=== PATIENT | male | born 1990 | race Caucasian/White ===

== ENCOUNTER 2025-03-13 12:11 | Inpatient (IN) | payer MEDICAID, SELFPAY ==
--- NOTE | 2025-03-13 | ECG_ITS ---
Test Reason : baseline Blood Pressure : */* mmHG Vent. Rate : 80 BPM Atrial Rate : 80 BPM P-R Int : 148 ms QRS Dur : 82 ms QT Int : 396 ms P-R-T Axes : 32 23 27 degrees QTcB Int : 456 ms Normal sinus rhythm Normal ECG No previous ECGs available Referred By: Shyann Cooley Electronically Signed By: LATISHA HIGGINS
--- NOTE | ~2025-03-13 | US_ITS ---
EXAMINATION: US ABDOMEN LIMITED CLINICAL INFORMATION: Right upper quadrant abdominal pain.. COMPARISON: Correlated to CT abdomen and pelvis dated March 13, 2025 at 2:05 PM TECHNIQUE: Real-time ultrasound of the right upper quadrant abdomen, limited. FINDINGS: Gallbladder is fluid-filled without distention. No pericholecystic fluid collection or gallbladder wall thickening. Common bile duct measures 6 mm. Liver measures 18 cm with increased echotexture. Subtle nodular surface. No gross solid or cystic lesion. Probable 1.9 cm lymph node in the [place] hepatic region. Right kidney demonstrates no gross hydronephrosis. No ascites. US/US abdomen limited IMPRESSION: Hepatomegaly and steatosis. Hepatocellular disease cannot be excluded. No cholelithiasis. Common bile duct measures 6 mm without choledocholithiasis. No ascites. No gross hydronephrosis, right kidney. Electronically signed by: Papo Murillo MD 03/13/2025 03:58 PM [facility]
--- NOTE | ~2025-03-13 | XR_ITS ---
CLINICAL HISTORY: SEVERE RHABDOMYOLYSIS 1 view chest x-ray Comparison: None provided Findings: No consolidation, pleural effusion or pneumothorax. Normal size heart. No acute fracture. IMPRESSION: No acute cardiopulmonary process. This document has been electronically signed by: Ailin Honeycutt DO on 03/13/2025 18:01:41
--- NOTE | ~2025-03-13 | CT_ITS ---
EXAMINATION: CT ABDOMEN AND PELVIS WITH CONTRAST CLINICAL INFORMATION: RUQ, RLQ pain , elevated AST, ALT R/O appy/liver COMPARISON: None available. TECHNIQUE: Multidetector volumetric images were obtained from the superior aspect of the liver through the pubic symphysis following administration 85 mL of Omnipaque 350 intravenous contrast. Sagittal and coronal reformatted images were obtained on the technologist's workstation. Oral contrast: No This CT examination was performed using dose optimization techniques as appropriate, variously including the following: *Automated exposure control *Adjustment of mA and/or kV according to patient size (this includes techniques or standardized protocols for targeted exams where dose is matched to indication/reason for exam; i.e. extremities or head) *Use of iterative reconstruction technique FINDINGS: LUNG BASES: The visualized lung bases are unremarkable. LIVER, GALLBLADDER, AND BILIARY TREE: The liver is normal in size, shape, and attenuation. No focal hepatic lesion or biliary ductal dilatation is present. The gallbladder is unremarkable with no evidence of radiopaque gallstones, gallbladder wall thickening, or obvious pericholecystic inflammatory changes. PANCREAS: Unremarkable. SPLEEN: Unremarkable. ADRENAL GLANDS: Unremarkable. KIDNEYS AND URETERS: The kidneys are normal in size, shape, and attenuation. No hydronephrosis, hydroureter, or calculi seen. No perinephric stranding. BLADDER: Unremarkable. GASTROINTESTINAL TRACT: The small and large bowel are unremarkable. The appendix is unremarkable. ABDOMINAL WALL: No significant hernia is appreciated. LYMPH NODES: Normal. VASCULAR: Minimal atherosclerotic ossifications PELVIC VISCERA: Unremarkable. 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 CT/CT abdomen pelvis w IV con IMPRESSION: No acute abnormality. Specifically, unremarkable appearing appendix, liver, and gallbladder. Fleischner guidelines were followed. Electronically signed by: Alejandro Vang MD 03/13/2025 02:31 PM [facility]
[2025-03-13 12:22] VITALS: BP 181/10; PULSE 80; RESP 16; TEMP 37.1; O2SAT 99; BMI 40.3
--- NOTE | 2025-03-13 12:22 | ED.ABDPAIN ---
HPI - Abdominal Pain General Chief Complaint: Abdominal Pain Stated Complaint: Stomach Pain Time Seen by Provider: 03/13/25 13:13 Source: patient Mode of arrival: ambulatory Limitations: no limitations History of Present Illness ED Provider: Dr. Lyle Meléndez HPI narrative: 34-year-old male with no significant past medical history accept for opiate use disorder 10 years prior, on methadone for 10 years with no recent use, who presents to the emergency department for evaluation of right upper quadrant abdominal pain which began last night at around 21:00 hours. Patient states he went to urinate and developed right-sided abdominal pain and noted that his urine was very dark. He also noted urinary frequency and states that he is urinating every 30 minutes. The dark color of his urine has resolved but he is continuing to have right-sided abdominal pain. The patient went to an urgent care clinic and was referred to the emergency department for evaluation. At the time my evaluation, he is complaining of right upper quadrant pressure-like pain which is constant in his 09/02. This is 1st episode of this type of pain. 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 Patient has noted pain of his upper extremities and states that his arms do feel weaker than normal. Review of systems was negative for fever, chills, sore throat, cough, chest pain, shortness of breath, dyspnea on exertion, nausea, vomiting, diarrhea. Related Data Allergies Allergy/AdvReac Type Severity Reaction Status Date / Time Penicillins Allergy Hives Verified 03/13/25 12:23 Review of Systems Review of Systems Yes all other systems are reviewed and are negative [facility] Past Medical History [facility] Narrative: Social history: Patient denies tobacco use. The patient states he has been sober for 2.5 years. Prior to that he was drinking at least a pt of vodka daily for many years. He is not aware of any liver damage from his drinking. He denies drug use. Social History Social History Smoked in Last 30 Days: No Use of substances other than those prescribed or required for medical reasons: No Advance Directives: No Advance Directives Information Provided: No Physical Exam ED Vital Signs: Vital Signs - 24 hr 03/13/25 12:22 03/13/25 13:27 Temperature 98.7 F 98.3 F Pulse Rate 80 80 Respiratory Rate 16 20 Blood Pressure 181/10 H 157/100 H Pulse Oximetry 99 99 Oxygen Delivery Method Room Air Room Air BMI result Body Mass Index 40.3 Vital signs revealed an elevated blood pressure of 181/100 otherwise unremarkable Exam: General: Awake, alert in no distress Head: Normocephalic, atraumatic EENT: PERRL, sclera and conjunctiva are normal, mouth with no erythema or exudates Neck: Supple, no adenopathy Lung: breath sounds symmetric, no wheezing, no rales and no rhonchi Chest: symmetric movement, nontender Heart: regular rate and rhythm, normal S1, S2 no murmurs or rubs Abdomen: soft, Moderate right upper quadrant tenderness with a negative Chavarria sign, moderate right lower quadrant tenderness, no rebound, nondistended, normal bowel sounds Back: no vertebral tenderness, no CVAT Extremities: no deformities, moves all extremities symmetrically, no edema Neuro: Awake, alert, oriented, normal speech, cranial nerves 2-12 intact, moves all extremities symmetrically Psych: Pleasant, cooperative Course Course Course Narrative: This is an RME: Additional HPI, ROS, PE not included below will be deferred to primary provider. RME assessment and note performed by: Rebekah Mansfield PA-C This is a [id number]-male, with a hx of GERD, who presents to the ER with a complaint of abdominal pain, dark urine. No nausea, vomiting. Had strep 6 months ago - completed zpak in its entirety. reports that the urine looked to be [employer] colored and frothy. Patient has a photo on his phone. No drug use. Plan: Labs, UA Medical Decision Making Medical Decision Making MDM Narrative: 34-year-old male with no significant past medical history accept for opiate use disorder 10 years prior, on methadone for 10 years who presents emergency department for evaluation of right upper quadrant abdominal pain which began last night at around 21:00 hours. Patient states he went to urinate and developed right-sided abdominal pain and noted that his urine was very dark. He also noted urinary frequency and states that he is urinating every 30 minutes. The dark color of his urine has resolved but he is continuing to have right-sided abdominal pain. The patient went to an urgent care clinic and was referred to the emergency department for evaluation. At the time my evaluation, he is complaining of right upper quadrant pressure-like pain which is constant in his 5/10. This is 1st episode of this type of pain. 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 Patient has noted pain of his upper extremities and states that his arms do feel weaker than normal.Review of systems was negative for fever, chills, sore throat, cough, chest pain, shortness of breath, dyspnea on exertion, nausea, vomiting, diarrhea. exam did reveal an elevated blood pressure otherwise vital signs were normal. Patient does have moderate right upper quadrant and right lower quadrant tenderness otherwise exam is unremarkable. Differential diagnosis: Includes but is not limited to Viral hepatitis, autoimmune hepatitis, acute cholecystitis, gallstone pancreatitis, hemochromatosis, appendicitis, diverticulitis, rhabdomyolysis, myopathy, urinary tract infection, renal stone, anemia, electrolyte abnormalities Course: 14:06 my independent interpretation patient's laboratory evaluation is as follows: CBC was normal. BUN and creatinine were normal. Glucose was elevated 133. AST and ALT were elevated 620 and 221. total bilirubin and direct bilirubin were normal. Alkaline phosphatase was normal. LDH elevated 1261. Ferritin was normal - unlikely to be hemochromatosis as the cause of his elevated LFTs. CK was significantly elevated at greater than 42,670. Urinalysis revealed trace blood. Microscopic revealed 0-2 RBCs, 0-5 WBCs, 0-2 squamous cells, no bacteria. ESR was elevated 31. CRP was elevated 1.53. I ordered lactated Ringer's 3 L IV and Toradol 15 mg IV for his abdominal pain. 15:33 Patient's urine tox screen was positive for methadone. He initially did not tell me that he was on medication assisted therapy. He told me that he has been on methadone 130 mg daily for 10 years in his not used opiates since then. He states that he used to use heroin. According to Up-To-Date, methadone can cause rhabdomyolysis as a direct toxic effect on the muscle tissue even in patients that have not overdose with loss of consciousness / prolonged downtime. Patient got no relief of his abdominal pain with IV Toradol therefore he was given morphine [address] scan of the abdomen pelvis with IV contrast did not reveal any clear cause for the patient's rhabdomyolysis. Right upper quadrant ultrasound result is pending. I will discuss admission with the covering hospitalist. 16:13 ultrasound revealed hepatomegaly with steatosis but otherwise no other significant findings. I did discuss the patient with the covering hospitalist, nurse practitioner Shyann Cooley and she did come to the emergency department to evaluate the patient. Differential Diagnosis Differential Diagnoses: The differential diagnosis associated with the presentation includes (See above) Admission/Observation Consideration of admission/observation: Escalation of care including admission/observation considered ( yes) Lab Data MDM Lab Attestation statement: I reviewed the patient's lab results. 03/13/25 13:05 03/13/25 13:05 Labs: Lab Results 03/13/25 03/13/25 03/13/25 Range/Units 13:05 13:28 14:45 WBC 7.7 (4.8-10.8) X10*3/uL RBC 4.60 (4.60-5.80) X10*6/uL Hgb 12.7 L (14.0-18.0) g/dl Hct 38.8 L (42.0-52.0) % MCV 84.3 (80.0-98.0) fL MCH 27.6 (27.0-33.0) pg MCHC 32.7 (31.0-36.0) g/dl RDW 12.9 (11.0-16.0) % Plt Count 245 (160-400) X10*3/uL MPV 10.2 (9.4-12.4) fL Immature Gran % (Auto) 0.3 (0.0-0.4) % Neut % (Auto) 57.6 (45-73) % Lymph % (Auto) 33.5 (20-40) % [place] % (Auto) 5.7 (2-11) % Eos % (Auto) 2.3 (0-4) % Baso % (Auto) 0.6 (0-2) % Lymph # (Auto) 2.6 (1.2-4.9) X10*3/uL [place] # (Auto) 0.4 (0.1-1.2) X10*3/uL Eos # (Auto) 0.2 (0.0-0.4) X10*3/uL Baso # (Auto) 0.1 (0.0-0.2) X10*3/uL Abs Immat Gran (auto) 0.02 (0.00-0.03) X10*3/uL Absolute Neuts (auto) 4.4 (2.0-8.3) x10*3/uL Absolute Nucleated RBC 0.000 (0.0-0.012) X10*3/uL Nucleated RBC % (auto) 0.0 (0.0-0.2) /100WBC ESR 31 H (0-15) MM/HR Sodium 139 (135-145) mmol/L Potassium 3.6 (3.3-5.1) mmol/L Chloride 102 (96-108) mmol/L Carbon Dioxide 29 (22-29) mmol/L Anion Gap 12 (12-20) BUN 13 (9-16) mg/dL Creatinine 0.59 (0.5-1.4) mg/dL Estim Creat Clear Calc 212.6 Estimated GFR > 60 Random Glucose 133 H (60-115) mg/dL Calcium 9.1 (8.4-10.2) mg/dL Magnesium 1.8 (1.6-2.6) mg/dL Ferritin 79 (20-250) ng/mL Total Bilirubin 0.7 (0.0-1.0) mg/dL Direct Bilirubin 0.2 (0.0-0.5) mg/dL AST 620 H (5-37) U/L ALT 221 H (0-40) U/L Alkaline Phosphatase 73 (39-117) U/L Lactate Dehydrogenase 1261 H (118-273) U/L Total Creatine Kinase > 14325 H (38-174) U/L C-Reactive Protein 1.53 H (< or = 0.50) mg/dL Total Protein 7.2 (6.5-8.0) g/dL Albumin 4.2 (3.5-5.0) g/dL Urine Color Yellow Urine Appearance Clear Urine pH 6.0 (5.0-9.0) Ur Specific [place] 1.025 (1.005-1.025) Urine Protein Trace (Neg-Trace) mg/dL Urine Glucose (UA) Negative (Negative) mg/dL Urine Ketones Negative (Negative) mg/dL Urine Blood Trace H (Negative) Urine Nitrite Negative (Negative) Ur Leukocyte Esterase Negative (Negative) Urine RBC 0-2 (0-2) /HPF Urine WBC 0-5 (0-5) /HPF Ur Squamous Epith Cells 0-2 (0-2) /HPF Urine Bacteria None Seen (None Seen) Hyaline Casts 0-2 (0-2) /LPF Urine Opiates Screen Not Detected (Not Detect) Ur Buprenorphine Scrn Not Detected (Not Detect) ng/mL Ur Oxycodone Screen Not Detected (Not Detect) ng/mL Urine Methadone Screen Positive H (Not Detect) ng/mL Urine Fentanyl Screen Not Detected (Not Detect) Ur Barbiturates Screen Not Detected (Not Detect) Ur Phencyclidine Scrn Not Detected (Not Detect) Ur Amphetamines Screen Not Detected (Not Detect) U Benzodiazepines Scrn Not Detected (Not Detect) Urine Cocaine Screen Not Detected (Not Detect) U Marijuana (THC) Screen Not Detected (Not Detect) Radiology Impression Discussion of test interpretation with radiology: I have reviewed the radiologist's reading. Radiologist Impression: CT abdomen pelvis w IV con IMPRESSION: No acute abnormality. Specifically, unremarkable appearing appendix, liver, and gallbladder. Fleischner guidelines were followed. Electronically signed by: Alejandro Vang MD 03/13/2025 02:31 PM EST US abdomen limited IMPRESSION: Hepatomegaly and steatosis. Hepatocellular disease cannot be excluded. No cholelithiasis. Common bile duct measures 6 mm without choledocholithiasis. No ascites. No gross hydronephrosis, right kidney. Electronically signed by: Papo Murillo MD 03/13/2025 03:58 PM Medications Administered Discontinued Medications Generic Name Dose Route Start Last Admin Trade Name Freq PRN Reason Stop Dose Admin Lactated Ringer's 1,000 mls @ 999 mls/hr 03/13/25 14:09 03/13/25 14:16 Lr IV 03/13/25 15:09 999 mls/hr .Q1H1M STA Administration Lactated Ringer's 1,000 mls @ 999 mls/hr 03/13/25 14:11 03/13/25 14:16 Lr IV 03/13/25 15:11 999 mls/hr .Q1H1M STA Administration Ketorolac Tromethamine 15 mg 03/13/25 13:55 03/13/25 14:16 Ketorolac Tromethamine 15 Mg/Ml Vial IVPUSH 03/13/25 13:56 15 mg ONCE STA Administration Critical Care Time Critical Care Time Critical Care Time: Yes Total Critical Care Time: 35 Attestation: Critical Care: The patient was critically ill with a high probability of imminent or life threatening deterioration. I spent greater than 30 minutes of discontinuous time evaluating the patient,delivering critical care at the bedside, discussing and evaluating pertinent data with consultants. Critical care time does not include time spent performing separately billable procedures or teaching. Total time spent performing critical care was 35 minutes. Discharge Plan Discharge Clinical Impression: Rhabdomyolysis, Methadone dependence Patient Disposition: Admitted As Inpatient Print Language: [place]
[2025-03-13 13:09] LABS: MANUAL DIFF FLAG NO
[2025-03-13 13:12] LABS: Hematocrit 38.8 % (42.0-52.0); Hemoglobin 12.7 g/dl (14.0-18.0); Imm Gran Abs Auto 0.02 X10*3/uL (0.00-0.03); Imm Gran Pct Auto 0.3 % (0.0-0.4); Lymphocytes Absolute Auto 2.6 X10*3/uL (1.2-4.9); Mean Corpuscular HGB Conc 32.7 g/dl (31.0-36.0); Mean Corpuscular Hemoglobin 27.6 pg (27.0-33.0); Mean Corpuscular Volume 84.3 fL (80.0-98.0); NRBC Abs Auto 0.000 X10*3/uL (0.0-0.012); NRBC Pct Auto 0.0 /100WBC (0.0-0.2); Platelet Count 245 X10*3/uL (160-400); Red Blood Count 4.60 X10*6/uL (4.60-5.80); White Blood Count 7.7 X10*3/uL (4.8-10.8)
[2025-03-13 13:27] VITALS: BP 157/100; PULSE 80; RESP 20; TEMP 36.8; O2SAT 99
[2025-03-13 13:30] LABS: Alanine Aminotransferase 221 U/L (0-40); Albumin Level 4.2 g/dL (3.5-5.0); Alkaline Phosphatase 73 U/L (39-117); Anion Gap 12 (12-20); Aspartate Amino Transferase 620 U/L (5-37); Blood Urea Nitrogen 13 mg/dL (9-16); Calcium 9.1 mg/dL (8.4-10.2); Carbon Dioxide 29 mmol/L (22-29); Chloride 102 mmol/L (96-108); Creatinine Clr Calc Pharmacy 212.6; Estimated Glomerular Filt Rate > 60; Magnesium 1.8 mg/dL (1.6-2.6); Potassium 3.6 mmol/L (3.3-5.1); Sodium 139 mmol/L (135-145); Total Protein 7.2 g/dL (6.5-8.0)
--- NOTE | 2025-03-13 13:31 | PC.NURSE ---
a&ox4. vss and up to date aside from being slightly hypertensive. pt presents to the ED c/o RUQ pain radiating to lower abdomen w/ associated dark urine/urinary urgency x 2 days. pt otherwise denies any nausea/vomiting/diarrhea/fevers/chills. no previous abdominal surgeries. 20gIV placed in the right AC - labs obtained/sent to lab. bladder scan obtained displaying 108ml. pt able to urinate/provide specimen w/o difficulty. sent to lab. pt otherwise on RA w/o difficulty - no sob/wob noted. respirations even/unlabored. plan of care ongoing. call rosenberg placed within reach.
[2025-03-13 13:55] LABS: Appearance Urine Clear; Glucose Urine UA Negative (Negative); PH 6.0 (5.0-9.0); Specific Gravity - Urine 1.025 (1.005-1.025); UMIC TRIGGER UACC YES
[2025-03-13] MEDS: Lactated Ringers 1,000 ML 999 ML IV ×2 (14:16)
[2025-03-13 14:55] LABS: Ferritin 79 ng/mL (20-250)
[2025-03-13 15:07] LABS: Cannabinoid Screen Urine Not Detected (Not Detect)
[2025-03-13 16:34] VITALS: BP 163/85; PULSE 90; RESP 18; TEMP 36.2; O2SAT 99
--- NOTE | 2025-03-13 16:44 | P.HPHOSP_ITS ---
History of Present Illness Date of Service: 03/13/25 Chief Complaint: Abdominal pain 34-year-old man presented to ER with complaints of upper arm pain and right upper quadrant abdominal pain. He reported that this started suddenly yesterday. He denied any recent illness, steroid use, drug use, alcohol use, trauma, vigorous exercise. 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 He reports that he only takes methadone and has been on it for many years. He reported that he had a seizure when he was very young secondary to a concussion but has never been on any medications and has never had any other seizure activity. Patient reported that he vapes. Does not have any significant medical history and does not take any other medications other than the methadone and medication for acid reflux. He did report that he was treated for strep infection last month with antibiotics and steroids. In the ER, his CPK was noted to be elevated at 42,670, CRP 1.53, LDH 1261, AST 620, ALT 221. Abdominal ultrasound showed mild enlargement of the liver. Patient was started on IV fluids. He will be admitted for further management and treatment of severe rhabdomyolysis. Review of Systems 2 Review of Systems: Denies any recent fever chills or decrease in appetite respiratory denies any shortness of breath or cough cardiovascular denied chest pain gastrointestinal denies any dysphagia abdominal pain nausea vomiting or diarrhea genitourinary denies any dysuria frequency or hematuria musculoskeletal see HPI neuropsych denies any weakness or seizures all other systems reviewed are negative [facility] Medical History (Updated 03/13/25 @ 17:08 by Shyann Cooley NP) GERD (gastroesophageal reflux disease) Social History (Updated 03/13/25 @ 17:09 by Shyann Cooley NP) e-Cigarette/Vaping Use: Currently Using Meds Allergies Allergy/AdvReac Type Severity Reaction Status Date / Time Penicillins Allergy Hives Verified 03/13/25 12:23 Active Medications: Current Medications Acetaminophen (Acetaminophen 325 Mg Tablet) 650 mg PO Q6H PRN PRN Reason: Pain, Mild 1-3,fever,headache Calcium Carbonate (Calcium Carbonate 750 Mg Tab.Chew) 750 mg PO Q4H PRN PRN Reason: Heartburn Magnesium Hydroxide (Milk Of Magnesia 30 Ml Oral.Susp) 30 ml PO DAILY PRN PRN Reason: Constipation Melatonin (Melatonin 3 Mg Tablet) 6 mg PO BEDTIME PRN PRN Reason: Insomnia Sodium Chloride (0.9 % Sodium Chloride Flush 3 Ml Syringe) 3 ml IVFLUSH QSHIFT DREA Physical Exam 2 Vital Signs and Narrative: Vital Signs: Last Vital Signs Temp 97.2 F 03/13/25 16:34 Pulse 90 03/13/25 16:34 Resp 18 03/13/25 16:34 BP 163/85 H 03/13/25 16:34 Pulse Ox 99 03/13/25 16:34 O2 Del Method Room Air 03/13/25 16:34 BMI result Body Mass Index 40.3 Appearing in no acute distress head is normocephalic atraumatic eyes pupils are PERRLA sclera is anicteric mouth throat mucous membranes are intact and moist neck is supple no lymphadenopathy, no JVD noted lung sounds are clear to auscultation heart regular rate rhythm, clear S1, S2 positive bowel sounds, abdomen is soft, nontender neuro patient is alert x3, no focal deficits Results Labs 03/13/25 13:05 03/13/25 13:05 Labs: Laboratory Results - last 24 hr 03/13/25 03/13/25 03/13/25 13:05 13:28 14:45 MCV 84.3 MCH 27.6 MCHC 32.7 RDW 12.9 Plt Count 245 MPV 10.2 Immature Gran % (Auto) 0.3 Neut % (Auto) 57.6 Lymph % (Auto) 33.5 [place] % (Auto) 5.7 Eos % (Auto) 2.3 Baso % (Auto) 0.6 Lymph # (Auto) 2.6 [place] # (Auto) 0.4 Eos # (Auto) 0.2 Baso # (Auto) 0.1 Abs Immat Gran (auto) 0.02 Absolute Neuts (auto) 4.4 Absolute Nucleated RBC 0.000 Nucleated RBC % (auto) 0.0 ESR 31 H Anion Gap 12 Estim Creat Clear Calc 212.6 Estimated GFR > 60 Random Glucose 133 H Calcium 9.1 Magnesium 1.8 Ferritin 79 Total Bilirubin 0.7 Direct Bilirubin 0.2 AST 620 H ALT 221 H Alkaline Phosphatase 73 Lactate Dehydrogenase 1261 H Total Creatine Kinase > 30728 H C-Reactive Protein 1.53 H Total Protein 7.2 Albumin 4.2 Urine Color Yellow Urine Appearance Clear Urine pH 6.0 Ur Specific [place] 1.025 Urine Protein Trace Urine Glucose (UA) Negative Urine Ketones Negative Urine Blood Trace H Urine Nitrite Negative Ur Leukocyte Esterase Negative Urine RBC 0-2 Urine WBC 0-5 Ur Squamous Epith Cells 0-2 Urine Bacteria None Seen Hyaline Casts 0-2 Urine Opiates Screen Not Detected Ur Buprenorphine Scrn Not Detected Ur Oxycodone Screen Not Detected Urine Methadone Screen Positive H Urine Fentanyl Screen Not Detected Ur Barbiturates Screen Not Detected Ur Phencyclidine Scrn Not Detected Ur Amphetamines Screen Not Detected U Benzodiazepines Scrn Not Detected Urine Cocaine Screen Not Detected U Marijuana (THC) Screen Not Detected Imaging Radiologist's Impressions: Impressions Abdomen/Pelvis CT 03/13/25 14:02 IMPRESSION: No acute abnormality. Specifically, unremarkable appearing appendix, liver, and gallbladder. Fleischner guidelines were followed. Electronically signed by: Alejandro Vang MD 03/13/2025 02:31 PM EST RP Abdomen Ultrasound 03/13/25 15:03 IMPRESSION: Hepatomegaly and steatosis. Hepatocellular disease cannot be excluded. No cholelithiasis. Common bile duct measures 6 mm without choledocholithiasis. No ascites. No gross hydronephrosis, right kidney. Electronically signed by: Papo Murillo MD 03/13/2025 03:58 PM EST RP Assessment and Plan (1) Rhabdomyolysis: Status: Acute Plan 34 year old man admitted with severe rhabdomyolysis, transaminitis possibly secondary to postviral syndrome from strep throat. Patient was treated last month with antibiotics and steroids. Severe rhabdomyolysis Recently treated for viral infection Inflammatory markers elevated including LDH 1261, CRP 1.53, ESR 31, TSH pending Denied trauma, aggressive exercise, drugs, alcohol, did report viral strep last month CPK 42,670 Normal kidney function Aggressive IV fluid hydration Repeat CPK in the a.m. Transaminitis Likely secondary to acute rhabdomyolysis Mild enlargement of liver on abdominal ultrasound, discussed with Gastroenterology, no need for further assessment at this time Elevated blood pressure reading Patient denied any history of hypertension Follow up blood pressure for now Consider adding blood pressure medication if blood pressure continues to be elevated Morbid obesity. BMI 40.4 Discussed importance of weight management as this may be contributing to worsening of other comorbidities Normocytic anemia Stable H&H History of substance abuse On methadone for many years RN to verify History of vaping No nicotine replacement needed DVT prophylaxis with early ambulation Full code Quality Stroke Does the patient have a stroke diagnosis?: No VTE Prior VTE?: No VTE Risk Level:: Medical - moderate - high VTE Device Contraindication: Treatment Not Indicated VTE Drug Contraindication: Treatment Not Indicated
[2025-03-13 17:40] VITALS: BMI 40.3
[2025-03-13 17:46] VITALS: BP 148/83; PULSE 82; RESP 16; TEMP 36.6; O2SAT 98
[2025-03-13] MEDS: Lactated Ringers 1,000 ML 150 ML IVCONT (17:46)
--- NOTE | 2025-03-13 18:26 | PHA.MEDREC ---
Addendum entered by Carmine Mckenna bailee 03/13/25 18:54: med rec reviewed Original Note: Pharmacy Consult ? Medication Reconciliation Pharmacy has completed the medication reconciliation. Spoke with pt and he confirmed he is only taking OTC Omeprazole 20mg tabs once daily and nothing else at this time.
[2025-03-13 19:28] VITALS: BP 132/82; PULSE 84; RESP 18; TEMP 36.9; O2SAT 98
[2025-03-14] MEDS: Lactated Ringers 1,000 ML 150 ML IVCONT ×4 (00:37→21:20)
[2025-03-14 04:00] VITALS: BP 118/64; PULSE 78; RESP 18; TEMP 36.5; O2SAT 97
--- OUTSIDE RECORDS SUMMARY | 2025-03-14 05:49 | XMS_ITS | Clinical Summary ---
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 Name Role Phone Unavailable Primary Care Provider Unavailabl e Social History Tobacco Use Types Packs/Day Years Used Date Smoking Tobacco: Never Assessed Sex and Gender Information Value Date Recorded Sex Assigned at Not on file Legal Sex Male 9:18 PM EDT Gender Identity Not on file Sexual Orientation Not on file Plan of Treatment Health Maintenance Due Date Last Done Comments Depression Screening 1992 HIV Screening 1992 SDOH Screening 1992 Disability Screening 1992 Alcohol/Substance Use Screening 2004 Tobacco Screening 2004 Family Planning (PISQ) 09/16/2007 HPV Vaccines (1 - Male 3-dos e series) 09/16/2007 Hepatitis C Screening 2010 DTaP/Tdap/Td Vaccines (1 - Tdap) 09/16/2011 Hepatitis B Vaccines (1 of 3 - 19+ 3-dose series) 09/16/2011 COVID-19 Vaccine (1 - 2024-2 6 season) 2024 Influenza Vaccine (#1) 2024 Zoster Vaccines (1 of 2) 2042 RSV Patients and Pa tients Aged 60 years or older (1 - 1-dose 75+ series) 09/16/2067 HIB Vaccines Aged Out No longer eligi ble based on patient's age to complete this topic Hepatitis A Vaccines Aged Out No long er eligible based on patient's age to complete this topic IPV Vaccines Aged Out No longer eligi ble based on patient's age to complete this topic Meningococcal B Vaccine Aged Out No l onger eligible based on patient's age to complete this topic Meningococcal Vaccine Aged Out No charlie connie eligible based on patient's age to complete this topic Pneumococcal Vaccine: Pediat rics (0 to 5 Years) and At-Risk Patients (6 to 49) Years Aged Out No longer eligible b ased on patient's age to complete this topic RSV under 20 months Aged Out No longe r eligible based on patient's age to complete this topic Rotavirus Vaccines Aged Out No longer eligible based on patient's age to complete this topic
[2025-03-14 07:05] LABS: Alanine Aminotransferase 197 U/L (0-40); Albumin Level 4.0 g/dL (3.5-5.0); Alkaline Phosphatase 68 U/L (39-117); Anion Gap 11 (12-20); Aspartate Amino Transferase 444 U/L (5-37); Blood Urea Nitrogen 7 mg/dL (9-16); Calcium 9.1 mg/dL (8.4-10.2); Carbon Dioxide 26 mmol/L (22-29); Chloride 107 mmol/L (96-108); Creatinine Clr Calc Pharmacy 241.1; Estimated Glomerular Filt Rate > 60; Potassium 4.1 mmol/L (3.3-5.1); Sodium 140 mmol/L (135-145); Total Protein 7.1 g/dL (6.5-8.0)
[2025-03-14 07:06] LABS: HBS Num1 0.27 mIU/mL (0-7.99); HBc Num1 0.06 S/CO (0.00-0.79); HBsAGNum1 0.41 S/CO (0.00-0.99); Hepatitis A Antibody IgM 0.25 Index (0-0.79); Hepatitis B Surface Antigen Negative (Negative); ~HepC Num1 0.09 S/CO (0.00-0.79); ~Hepatitis A Antibody IgM Nonreactive (Nonreactive); ~Hepatitis B Surface Antibody NONREACTIVE (Nonreactive); ~Hepatitis C Antibody Nonreactive (Nonreactive)
[2025-03-14 07:32] LABS: Hematocrit 38.7 % (42.0-52.0); Hemoglobin 12.6 g/dl (14.0-18.0); Mean Corpuscular HGB Conc 32.6 g/dl (31.0-36.0); Mean Corpuscular Hemoglobin 28.1 pg (27.0-33.0); Mean Corpuscular Volume 86.2 fL (80.0-98.0); NRBC Abs Auto 0.000 X10*3/uL (0.0-0.012); NRBC Pct Auto 0.0 /100WBC (0.0-0.2); Platelet Count 210 X10*3/uL (160-400); Red Blood Count 4.49 X10*6/uL (4.60-5.80); White Blood Count 6.5 X10*3/uL (4.8-10.8)
[2025-03-14 07:38] VITALS: BP 153/69; PULSE 84; RESP 16; TEMP 36.4; O2SAT 98
[2025-03-14 07:43] LABS: EBV-NA IgG Index >600.00 U/mL; EBV-VCA IgG Ab 123.00 U/mL; EBV-VCA IgM Ab <36.00 U/mL
[2025-03-14] MEDS: 0.9 % Sodium Chloride Flush 3 ML SYRINGE IVFLUSH (08:13)
--- NOTE | 2025-03-14 08:36 | P.CNGI_ITS ---
History of Present Illness Data of Consult Service Date: 03/14/25 Primary Care Provider: [facility] HPI Reason for consult: enlarged liver , abdo pain 34-year-old man with hx of methadone dependence who I am seeing for elevated CPK and abdominal pain. He initially presented to ER with complaint of 1 d of bilateral upper arm cramps (liek he had been doing ehavy lifting) and right upper quadrant abdominal discomfort. before that he noted dark colored urine. He denied any recent illness or exposure to sick relatives/friends, steroid use, drug use, alcohol use, trauma, vigorous exercise or seizures. He was treated for strep infection last month with antibiotics and steroids. Labs revealed his CPK was noted to be elevated at 42,670, CRP 1.53, LDH 1261, AST 620, ALT 221 imaging with Us and CT A/P: hepatomegaly and steatosis, no gallstones were seen. Today: labs are improving and CK and LFT came down a lot Review of Systems 2 Review of Systems: Constitutional : No Weight loss, No Fever, No Chills ENT/Mouth : No sore throat, No Rhinorrhea Eyes: No Swelling, No Redness Cardiovascular : No Chest Pain, No SOB, No Edema Respiratory : No Cough, No Sputum, No Wheezing Gastrointestinal : see HPI Genitourinary : NO Dysuria, No Urinary Frequency, No Hematuria, No Urgency Musculoskeletal : no joint pain, + Myalgias, No Joint Swelling Skin : No Skin Lesions, No rash Neuro : No Weakness, No Numbness, No Dizziness, No Headache Psych : No Anxiety/Panic, No Depression Heme/Lymph: No Bruising, No Lymphadenopathy Endocrine : No Polyuria, No Polydipsia All other systems reviewed and are negative. [facility] Past Medical History Medical History (Updated 03/14/25 @ 13:47 by Tao Lala MD) GERD (gastroesophageal reflux disease) Family History Pertinent family history: no Fh of liver disease Social History Social History (Updated 03/13/25 @ 17:09 by Shyann Cooley NP) Household Members: Family Housing: House Do you presently have visiting nurse or other home services: No Patient Tobacco Use Status: Never used Tobacco Smoked in Last 30 Days: No e-Cigarette/Vaping Use: Currently Using Use of substances other than those prescribed or required for medical reasons: No Currently Displaying Signs/Symptoms of Drug Intoxication Withdrawal: No Have you been hit, kicked, punched, or otherwise hurt by someone within the past year? If so, by whom?: No Do you feel safe in your current relationship?: Yes Is there a partner from a previous relationship who is making you feel unsafe now?: No Are you made to feel afraid or neglected: No Advance Directives: No Advance Directives Information Provided: No Do you have a plan to hurt others: No Plan Recently lost weight without trying: No Eating poorly because of decreased appetite: No Nutrition Risks: No Nutritional Risk Poor oral hygiene: No Meds Allergies Allergy/AdvReac Type Severity Reaction Status Date / Time Penicillins Allergy Hives Verified 03/13/25 12:23 Active Medications: Current Medications Acetaminophen (Acetaminophen 325 Mg Tablet) 650 mg PO Q6H PRN PRN Reason: Pain, Mild 1-3,fever,headache Calcium Carbonate (Calcium Carbonate 750 Mg Tab.Chew) 750 mg PO Q4H PRN PRN Reason: Heartburn Lactated Ringer's (Lr) 1,000 mls @ 150 mls/hr IVCONT .Q6H40M [facility] Last Admin: 03/14/25 08:11 Dose: 150 mls/hr Magnesium Hydroxide (Milk Of Magnesia 30 Ml Oral.Susp) 30 ml PO DAILY PRN PRN Reason: Constipation Melatonin (Melatonin 3 Mg Tablet) 6 mg PO BEDTIME PRN PRN Reason: Insomnia Omeprazole (Omeprazole 20 Mg Capsule.Dr) 20 mg PO DAILY@0630 [facility] Sodium Chloride (0.9 % Sodium Chloride Flush 3 Ml Syringe) 3 ml IVFLUSH QSHIFT [facility] Last Admin: 03/14/25 08:13 Dose: 3 ml Home Medications ?Medication ?Instructions ?Recorded ?Confirmed ?Last Taken ?Type omeprazole 20 mg tablet,delayed 20 mg PO DAILY@0630 03/13/25 03/12/25 History release methadone 10 mg/mL oral 130 mg PO DAILY 03/14/2503/13/25 History concentrate (Methadone Intensol) Physical Exam 2 Exam: Exam: EXAM: GENERAL: The patient is well developed and nontoxic. overweight VITAL SIGNS:see workflow HEENT: Nonicteric sclerae, PERRLA, EOMI. Oropharynx clear. Moist mucous membranes. Conjunctivae appear well perfused. No thyroid mass. enlarged non infected tonsils CHEST: Chest wall is nontender. HEART: Regular rate and rhythm without murmurs. LUNGS: Clear to auscultation bilaterally. ABDOMEN: Soft, positive bowel sounds, nontender, no organomegaly.no flank tenderness SKIN: No rash, no excessive bruising, petechiae, or purpura. NEUROLOGIC: Cranial nerves II-XII intact without motor/sensory deficit. Psych: normal affect Vital Signs: Vital Signs: Last Vital Signs Temp 97.5 F 03/14/25 07:38 Pulse 84 03/14/25 07:38 Resp 16 03/14/25 07:38 BP 153/69 H 03/14/25 07:38 Pulse Ox 98 03/14/25 07:38 O2 Del Method Room Air 03/14/25 07:38 BMI result Body Mass Index 40.3 Results Labs 03/14/25 06:23 03/14/25 06:23 Labs: Short CBC 03/13/25 03/14/25 Range/Units 13:05 06:23 WBC 7.7 6.5 (4.8-10.8) X10*3/uL Hgb 12.7 L 12.6 L (14.0-18.0) g/dl Hct 38.8 L 38.7 L (42.0-52.0) % Plt Count 245 210 (160-400) X10*3/uL BMP 03/13/25 03/14/25 13:05 06:23 Sodium 139 140 Potassium 3.6 4.1 Chloride 102 107 Carbon Dioxide 29 26 BUN 13 7 L Creatinine 0.59 0.52 Calcium 9.1 9.1 Cardiac Enzymes 03/13/25 03/14/25 Range/Units 13:05 06:23 Total Creatine Kinase > 96663 H 09160 H (38-174) U/L Liver Function 03/13/25 03/14/25 Range/Units 13:05 06:23 Total Bilirubin 0.7 0.8 (0.0-1.0) mg/dL Direct Bilirubin 0.2 0.2 (0.0-0.5) mg/dL AST 620 H 444 H (5-37) U/L ALT 221 H 197 H (0-40) U/L Alkaline Phosphatase 73 68 (39-117) U/L Albumin 4.2 4.0 (3.5-5.0) g/dL Urine 03/13/25 Range/Units 13:28 Urine Color Yellow Urine Appearance Clear Urine pH 6.0 (5.0-9.0) Ur Specific [place] 1.025 (1.005-1.025) Urine Protein Trace (Neg-Trace) mg/dL Urine Glucose (UA) Negative (Negative) mg/dL Imaging CT scan - abdomen: Attestation: I personally reviewed and interpreted this imaging study as follows: (hepatomegaly, ) Assessment and Plan (1) Rhabdomyolysis: Qualifiers: Rhabdomyolysis type: non-traumatic Qualified Code(s): M62.82 - Rhabdomyolysis Status: Acute Plan 1/ Rhabdomyolysis with elevated LFT pattern consistent with myositis and not liver injury (AST > ALT) with downtrending numbers after hydration. Uncertain etiology, ?due to recent EBV, or antibiotics. He feels improved 2/ Hepatomegaly, presumed to be due to fatty liver PLAN: 1/ o/p follow up for fatty liver, can check Hep serologies 2/ Check TSH 3/ cont with fluids Procedures Date of Service Date of Service: 03/14/25
--- NOTE | 2025-03-14 09:59 | HO.PM.IMPN ---
Subjective Subjective Date of Service: 03/14/25 Interval History: Tested positive for Love bar virus LFTs and CPK trending known Pt reports feels better Still experiencing RUQ ?pressure? Review of Systems Review of Systems: Yes all other systems are reviewed and are negative Physical Exam Exam: Exam: General: AOx3, no acute distress Resp: CTA bilaterally CVS: S1, S2, RRR GI: +BS, NT, no distention Skin: Warm, dry Neuro: Cranial nerves II-XII grossly intact bilaterally. Motor grossly intact bilaterally Extremities: No edema Psych: Appropriate affect Vital Signs: Vital Signs: Last Vital Signs Temp 97.5 F 03/14/25 07:38 Pulse 84 03/14/25 07:38 Resp 16 03/14/25 07:38 BP 153/69 H 03/14/25 07:38 Pulse Ox 98 03/14/25 07:38 O2 Del Method Room Air 03/14/25 07:38 BMI result Body Mass Index 40.3 Objective Data Active Medications Acetaminophen (Acetaminophen 325 Mg Tablet) 650 mg PO Q6H PRN PRN Reason: Pain, Mild 1-3,fever,headache Calcium Carbonate (Calcium Carbonate 750 Mg Tab.Chew) 750 mg PO Q4H PRN PRN Reason: Heartburn Lactated Ringer's (Lr) 1,000 mls @ 150 mls/hr IVCONT .Q6H40M [facility] Last Admin: 03/14/25 08:11 Dose: 150 mls/hr Documented By: JAYME Magnesium Hydroxide (Milk Of Magnesia 30 Ml Oral.Susp) 30 ml PO DAILY PRN PRN Reason: Constipation Melatonin (Melatonin 3 Mg Tablet) 6 mg PO BEDTIME PRN PRN Reason: Insomnia Omeprazole (Omeprazole 20 Mg Capsule.Dr) 20 mg PO DAILY@0630 [facility] Sodium Chloride (0.9 % Sodium Chloride Flush 3 Ml Syringe) 3 ml IVFLUSH QSHIFT [facility] Last Admin: 03/14/25 08:13 Dose: 3 ml Documented By: JAYME Labs 03/14/25 06:23 03/14/25 06:23 Labs: Laboratory Results - last 24 hr 03/13/25 03/13/25 03/13/25 13:05 13:28 14:45 MCV 84.3 MCH 27.6 MCHC 32.7 RDW 12.9 Plt Count 245 MPV 10.2 Immature Gran % (Auto) 0.3 Neut % (Auto) 57.6 Lymph % (Auto) 33.5 [place] % (Auto) 5.7 Eos % (Auto) 2.3 Baso % (Auto) 0.6 Lymph # (Auto) 2.6 [place] # (Auto) 0.4 Eos # (Auto) 0.2 Baso # (Auto) 0.1 Abs Immat Gran (auto) 0.02 Absolute Neuts (auto) 4.4 Absolute Nucleated RBC 0.000 Nucleated RBC % (auto) 0.0 ESR 31 H Anion Gap 12 Estim Creat Clear Calc 212.6 Estimated GFR > 60 Random Glucose 133 H Estimat Average Glucose 114 Hemoglobin A1c % 5.6 Calcium 9.1 Magnesium 1.8 Ferritin 79 Total Bilirubin 0.7 Direct Bilirubin 0.2 AST 620 H ALT 221 H Alkaline Phosphatase 73 Lactate Dehydrogenase 1261 H Total Creatine Kinase > 97091 H C-Reactive Protein 1.53 H Total Protein 7.2 Albumin 4.2 TSH 0.51 Urine Color Yellow Urine Appearance Clear Urine pH 6.0 Ur Specific [place] 1.025 Urine Protein Trace Urine Glucose (UA) Negative Urine Ketones Negative Urine Blood Trace H Urine Nitrite Negative Ur Leukocyte Esterase Negative Urine RBC 0-2 Urine WBC 0-5 Ur Squamous Epith Cells 0-2 Urine Bacteria None Seen Hyaline Casts 0-2 Urine Opiates Screen Not Detected Ur Buprenorphine Scrn Not Detected Ur Oxycodone Screen Not Detected Urine Methadone Screen Positive H Urine Fentanyl Screen Not Detected Ur Barbiturates Screen Not Detected Ur Phencyclidine Scrn Not Detected Ur Amphetamines Screen Not Detected U Benzodiazepines Scrn Not Detected Urine Cocaine Screen Not Detected U Marijuana (THC) Screen Not Detected EBV Capsid Ag IgG Ab EBV Capsid Ag IgM Index EBV Nuclear Ag IgG Indx EBV Antibody Interp Hepatitis A IgM Ab Hep Bs Antigen Hep Bs Antibody Hep B Core Total Ab Hepatitis C Ab (EIA) 03/13/25 03/14/25 18:35 06:23 MCV 86.2 MCH 28.1 MCHC 32.6 RDW 12.8 Plt Count 210 MPV 10.4 Immature Gran % (Auto) Neut % (Auto) Lymph % (Auto) [place] % (Auto) Eos % (Auto) Baso % (Auto) Lymph # (Auto) [place] # (Auto) Eos # (Auto) Baso # (Auto) Abs Immat Gran (auto) Absolute Neuts (auto) Absolute Nucleated RBC 0.000 Nucleated RBC % (auto) 0.0 ESR Anion Gap 11 L Estim Creat Clear Calc 241.1 Estimated GFR > 60 Random Glucose 98 Estimat Average Glucose Hemoglobin A1c % Calcium 9.1 Magnesium Ferritin Total Bilirubin 0.8 Direct Bilirubin 0.2 AST 444 H ALT 197 H Alkaline Phosphatase 68 Lactate Dehydrogenase Total Creatine Kinase 98936 H C-Reactive Protein Total Protein 7.1 Albumin 4.0 TSH Urine Color Urine Appearance Urine pH Ur Specific [place] Urine Protein Urine Glucose (UA) Urine Ketones Urine Blood Urine Nitrite Ur Leukocyte Esterase Urine RBC Urine WBC Ur Squamous Epith Cells Urine Bacteria Hyaline Casts Urine Opiates Screen Ur Buprenorphine Scrn Ur Oxycodone Screen Urine Methadone Screen Urine Fentanyl Screen Ur Barbiturates Screen Ur Phencyclidine Scrn Ur Amphetamines Screen U Benzodiazepines Scrn Urine Cocaine Screen U Marijuana (THC) Screen EBV Capsid Ag IgG Ab 123.00 H EBV Capsid Ag IgM Index <36.00 EBV Nuclear Ag IgG Indx >600.00 H EBV Antibody Interp SEE NOTE Hepatitis A IgM Ab Nonreactive Hep Bs Antigen Negative Hep Bs Antibody NONREACTIVE Hep B Core Total Ab Nonreactive Hepatitis C Ab (EIA) Nonreactive Assessment and Plan (1) Rhabdomyolysis: Status: Acute (2) Love Espinoza infection: Status: Acute Plan 34 year old man admitted with severe rhabdomyolysis, transaminitis possibly secondary to postviral syndrome from strep throat. Patient was treated last month with antibiotics and steroids. Severe rhabdomyolysis Recently treated for strep throat with abx 4-6 weeks ago Tested positve for EBV Inflammatory markers elevated including LDH 1261, CRP 1.53, ESR 31 Denied trauma, aggressive exercise, drugs, alcohol, did report viral strep last month CPK initially >42,670, now 28,464 Normal kidney function Continue aggressive IV fluid hydration Trend CPK Infectious disease consulted Transaminitis Likely secondary to acute EBV Mild enlargement of liver on abdominal ultrasound, discussed with Gastroenterology, no need for further assessment at this time LFTS trending down Monitor Elevated blood pressure reading Patient denied any history of hypertension Follow up blood pressure for now Consider adding blood pressure medication if blood pressure continues to be elevated Normocytic anemia Stable H&H History of substance abuse On methadone for many years Continue methadone 130mg daily History of vaping No nicotine replacement needed Obesity class III BMI 40.4 Discussed importance of weight management as this may be contributing to worsening of other comorbidities DVT prophylaxis with early ambulation Full code Pt requires continued hospitalization for aggressive IV fluid resuscitation and close monitoring of kidney function, CPK, and LFTs. Quality Stroke Does the patient have a stroke diagnosis?: No VTE Prior VTE?: No VTE Risk Level:: Medical - moderate - high VTE Device Contraindication: Treatment Not Indicated VTE Drug Contraindication: Treatment Not Indicated
--- NOTE | 2025-03-14 10:13 | HE.PHANOTE ---
METHADONE Last received 130mg 03/08/25 from [facility], . Pt received 7 take home bottles, last consumed yesterday, 03/13.
[2025-03-14] MEDS: methADONE HCl 20 MG/2 ML ORAL.CONC 130 MG PO (10:29)
[2025-03-14 10:56] LABS: Chlamydia pneumoniae PCR Not Detected (Not Detect.); Coronavirus 229E PCR Not Detected (Not Detect.); Coronavirus HKU1 PCR Not Detected (Not Detect.); Coronavirus NL63 PCR Not Detected (Not Detect.); Coronavirus OC43 PCR Not Detected (Not Detect.); RSV PCR Not Detected (Not Detect.); Rhino/Enterovirus PCR Not Detected (Not Detect.)
[2025-03-14 11:34] LABS: Influenza A H1 PCR Not Detected (Not Detect.); Influenza A H1-2009 PCR Not Detected (Not Detect.); Influenza A H3 PCR Not Detected (Not Detect.); SARS-CoV-2 PCR Not Detected (Not Detect.)
--- NOTE | 2025-03-14 13:52 | MHC.CM.PN ---
pt lives with father is indepedent has own ride hme pt gets methadone from from [facility]
--- NOTE | 2025-03-14 15:12 | PC.NURSE ---
IV paused for patient to shower
[2025-03-14 15:37] VITALS: BP 171/91; PULSE 76; RESP 18; TEMP 36.3; O2SAT 98
--- NOTE | 2025-03-14 16:25 | W.PM.IDCN ---
History of Present Illness Data of Consult Service Date: 03/14/25 Requesting physician: Naty Rebolledo Primary Care Provider: [facility] Reason for consult: hepatitis ,possible infectious etiology He presents with coca cola color urine started yesterday. 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 He denies drug use and vapes. He has no medication but uses pre workout which has caffeine in it. He has no ill animals,his father has a dog. He has no travel. Review of Systems Review of Systems: Yes all other systems are reviewed and are negative PMFSH Past Medical History Medical History GERD (gastroesophageal reflux disease) Family History Family history: reviewed and not pertinent Social History Social History Household Members: Family Housing: House Do you presently have visiting nurse or other home services: No Patient Tobacco Use Status: Never used Tobacco Smoked in Last 30 Days: No e-Cigarette/Vaping Use: Currently Using Use of substances other than those prescribed or required for medical reasons: No Currently Displaying Signs/Symptoms of Drug Intoxication Withdrawal: No Have you been hit, kicked, punched, or otherwise hurt by someone within the past year? If so, by whom?: No Do you feel safe in your current relationship?: Yes Is there a partner from a previous relationship who is making you feel unsafe now?: No Are you made to feel afraid or neglected: No Advance Directives: No Advance Directives Information Provided: No Do you have a plan to hurt others: No Plan Recently lost weight without trying: No Eating poorly because of decreased appetite: No Nutrition Risks: No Nutritional Risk Poor oral hygiene: No service: No Meds Allergies Allergy/AdvReac Type Severity Reaction Status Date / Time Penicillins Allergy Hives Verified 03/13/25 12:23 Active Medications: Current Medications Acetaminophen (Acetaminophen 325 Mg Tablet) 650 mg PO Q6H PRN PRN Reason: Pain, Mild 1-3,fever,headache Calcium Carbonate (Calcium Carbonate 750 Mg Tab.Chew) 750 mg PO Q4H PRN PRN Reason: Heartburn Lactated Ringer's (Lr) 1,000 mls @ 150 mls/hr IVCONT .Q6H40M [facility] Last Infusion: 03/14/25 15:56 Dose: 150 mls/hr Magnesium Hydroxide (Milk Of Magnesia 30 Ml Oral.Susp) 30 ml PO DAILY PRN PRN Reason: Constipation Melatonin (Melatonin 3 Mg Tablet) 6 mg PO BEDTIME PRN PRN Reason: Insomnia Methadone HCl (Methadone Hcl 20 Mg/2 Ml Oral.Conc) 130 mg PO DAILY@0800 [facility] Last Admin: 03/14/25 10:29 Dose: 130 mg Omeprazole (Omeprazole 20 Mg Capsule.Dr) 20 mg PO DAILY@0630 [facility] Sodium Chloride (0.9 % Sodium Chloride Flush 3 Ml Syringe) 3 ml IVFLUSH QSHIFT [facility] Last Admin: 03/14/25 15:57 Dose: Not Given Home Medications ?Medication ?Instructions ?Recorded ?Confirmed ?Last Taken ?Type omeprazole 20 mg tablet,delayed 20 mg PO DAILY@0630 03/13/25 03/13/25 03/12/25 History release methadone 10 mg/mL oral 130 mg PO DAILY 03/14/25 03/14/25 03/13/25 History concentrate (Methadone Intensol) Physical Exam Vital Signs: Vital Signs: Last Vital Signs Temp 97.3 F 03/14/25 15:37 Pulse 76 03/14/25 15:37 Resp 18 03/14/25 15:37 BP 171/91 H 03/14/25 15:37 Pulse Ox 98 03/14/25 15:37 O2 Del Method Room Air 03/14/25 15:37 BMI result Body Mass Index 40.3 Const: General: cooperative HEENT: Head: Yes normal to inspection Face and sinus: Yes normal facial exam Mouth: Normal oral and palatal mucosa present Teeth and gingiva: dentition normal Eyes: General: appearance normal, both eyes and all related structures Pupils: Equal, round and reactive pupils present Resp: Effort & Inspection: normal respiratory effort Cardio: Rate: regular rate Rhythm: regular rhythm GI: Palpation (GI): Soft to palpation and nontender : General: Yes no CVA tenderness Back/Spine/Pelvis: Back: no CVA tenderness Skin: General skin exam: no rashes or lesions noted Neuro: General: moves all extremities Cranial nerves: Yes Equal, round and reactive pupils present Extrem: General: Yes normal to inspection Psych: Appearance: grossly normal Results Labs 03/14/25 06:23 03/14/25 06:23 Labs: Short CBC 03/14/25 Range/Units 06:23 WBC 6.5 (4.8-10.8) X10*3/uL Hgb 12.6 L (14.0-18.0) g/dl Hct 38.7 L (42.0-52.0) % Plt Count 210 (160-400) X10*3/uL BMP 03/14/25 06:23 Sodium 140 Potassium 4.1 Chloride 107 Carbon Dioxide 26 BUN 7 L Creatinine 0.52 Calcium 9.1 Cardiac Enzymes 03/14/25 Range/Units 06:23 Total Creatine Kinase 14291 H (38-174) U/L Liver Function 03/14/25 Range/Units 06:23 Total Bilirubin 0.8 (0.0-1.0) mg/dL Direct Bilirubin 0.2 (0.0-0.5) mg/dL AST 444 H (5-37) U/L ALT 197 H (0-40) U/L Alkaline Phosphatase 68 (39-117) U/L Albumin 4.0 (3.5-5.0) g/dL Assessment and Plan (1) Rhabdomyolysis: Qualifiers: Rhabdomyolysis type: non-traumatic Qualified Code(s): M62.82 - Rhabdomyolysis Status: Acute (2) Methadone dependence: Status: Acute Plan Possible infectious causes include flu, HIV, CMV, echo,adenovirus and coxsackivirus for rhabdomyolysis. Less likely tick borne. He has had mono (EBV) as child and serology not helpful way to diagnose this (shows IgG which indicates old more than six weeks exposure not acute infection) and he has no exudate on throat. 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 Also medication can cause rhabdomyolysis on occasion. Would check HIV test and tick borne panel (although doubt tick borne) Investigate medication in work out drink. Check leptospirosis (doubt) and Doxycycline if positive.
[2025-03-14 17:25] VITALS: BP 147/74
[2025-03-14 20:00] VITALS: BP 138/68; PULSE 79; RESP 18; TEMP 36.2; O2SAT 99
[2025-03-15 03:05] VITALS: BP 134/66; PULSE 82; RESP 16; TEMP 36.2; O2SAT 97
[2025-03-15] MEDS: Lactated Ringers 1,000 ML 150 ML IVCONT ×3 (03:57→17:59)
[2025-03-15 06:55] LABS: Alanine Aminotransferase 180 U/L (0-40); Albumin Level 3.9 g/dL (3.5-5.0); Alkaline Phosphatase 63 U/L (39-117); Anion Gap 10 (12-20); Aspartate Amino Transferase 355 U/L (5-37); Blood Urea Nitrogen 5 mg/dL (9-16); Calcium 8.8 mg/dL (8.4-10.2); Carbon Dioxide 30 mmol/L (22-29); Chloride 105 mmol/L (96-108); Creatinine Clr Calc Pharmacy 232.2; Estimated Glomerular Filt Rate > 60; Potassium 4.2 mmol/L (3.3-5.1); Sodium 141 mmol/L (135-145); Total Protein 6.8 g/dL (6.5-8.0)
[2025-03-15] MEDS: methADONE HCl 20 MG/2 ML ORAL.CONC 130 MG PO (07:16)
[2025-03-15 07:17] VITALS: BP 157/74
[2025-03-15 07:38] VITALS: BP 157/74; PULSE 86; RESP 16; TEMP 36.6; O2SAT 95
[2025-03-15 09:09] LABS: HIV Num 1 0.07 S/CO (0.00-0.99)
--- NOTE | 2025-03-15 11:50 | HO.PM.IMPN ---
Subjective Subjective Date of Service: 03/15/25 Interval History: Feels about the same as yesterday Still with muscle soreness and stiffness in arm and shoulders Reports took some [employer] Pre-Workout Explosion 2.0 supplement day prior to symptom onset; then did treadmill lightly for 30 minutes, no strenuous exercise Review of Systems Review of Systems: Yes all other systems are reviewed and are negative Physical Exam Exam: Exam: General: AOx3, no acute distress ENT: tonsils swollen without exudate Resp: CTA bilaterally CVS: S1, S2, RRR GI: +BS, NT, no distention Skin: Warm, dry Neuro: Cranial nerves II-XII grossly intact bilaterally. Motor grossly intact bilaterally Extremities: No edema. Right upper extremities with limited ROM secondary pain/soreness Psych: Appropriate affect Vital Signs: Vital Signs: Last Vital Signs Temp 97.8 F 03/15/25 07:38 Pulse 86 03/15/25 07:38 Resp 16 03/15/25 07:38 BP 157/74 H 03/15/25 07:38 Pulse Ox 95 03/15/25 07:38 O2 Del Method Room Air 03/15/25 07:38 BMI result Body Mass Index 40.3 Objective Data Active Medications Acetaminophen (Acetaminophen 325 Mg Tablet) 650 mg PO Q6H PRN PRN Reason: Pain, Mild 1-3,fever,headache Amlodipine Besylate (Amlodipine Besylate 5 Mg Tablet) 5 mg PO DAILY [facility]; Protocol Last Admin: 03/15/25 07:17 Dose: 5 mg Documented By: CÉSAR Calcium Carbonate (Calcium Carbonate 750 Mg Tab.Chew) 750 mg PO Q4H PRN PRN Reason: Heartburn Lactated Ringer's (Lr) 1,000 mls @ 150 mls/hr IVCONT .Q6H40M [facility] Last Admin: 03/15/25 10:48 Dose: 150 mls/hr Documented By: CÉSAR Magnesium Hydroxide (Milk Of Magnesia 30 Ml Oral.Susp) 30 ml PO DAILY PRN PRN Reason: Constipation Melatonin (Melatonin 3 Mg Tablet) 6 mg PO BEDTIME PRN PRN Reason: Insomnia Methadone HCl (Methadone Hcl 20 Mg/2 Ml Oral.Conc) 130 mg PO DAILY@0800 [facility] Last Admin: 03/15/25 07:16 Dose: 130 mg Documented By: CÉSAR Co-signed By: CARLI Omeprazole (Omeprazole 20 Mg Celestina.) 20 mg PO DAILY@0630 [facility] Last Admin: 03/15/25 06:11 Dose: 20 mg Documented By: HAO Sodium Chloride (0.9 % Sodium Chloride Flush 3 Ml Syringe) 3 ml IVFLUSH QSHIFT [facility] Last Admin: 03/15/25 07:17 Dose: Not Given Documented By: CÉSAR Non-Admin Reason: IV Running Labs 03/14/25 06:23 03/15/25 06:08 Labs: Laboratory Results - last 24 hr 03/14/25 03/15/25 16:47 06:08 Hold Purple Top SEE NOTE Anion Gap 10 L Estim Creat Clear Calc 232.2 Estimated GFR > 60 Random Glucose 144 H Calcium 8.8 Total Bilirubin 0.3 AST 355 H ALT 180 H Alkaline Phosphatase 63 Total Creatine Kinase 48455 H Total Protein 6.8 Albumin 3.9 HIV 1&2 Ab/P24 Ag 4thGn Nonreactive Assessment and Plan (1) Rhabdomyolysis: Status: Acute Plan 34 year old man admitted with severe rhabdomyolysis, transaminitis possibly secondary to postviral syndrome from strep throat. Patient was treated last month with antibiotics and steroids. Severe rhabdomyolysis Recently treated for strep throat with abx 4-6 weeks ago Tested positve for EBV though likely subacute/remote infection Inflammatory markers elevated including LDH 1261, CRP 1.53, ESR 31 Denied trauma, aggressive exercise, drugs, or alcohol Did take for first time some [employer] Pre-Workout Explosion 2.0 supplement day prior to symptom onset; then did light workout on treadmill x30 minutes CPK initially >42,670, now 21,297 Normal kidney function Continue aggressive IV fluid hydration: LR@150mls/hr Trend CPK Infectious disease consulted: possible infectious causes include CMV, adenovirus, and Coxsackie virus, tick borne less likely HIV negative Check tick panel, leptospirosis Transaminitis Mild enlargement of liver on abdominal ultrasound, discussed with Gastroenterology, no need for further assessment at this time LFTS trending down GI consulted Monitor Elevated blood pressure reading Patient denied any history of hypertension BP has been elevated, will start on amlopidine 5mg daily Monitor; consider prescribing on discharge if BP elevated after IVF stopped Normocytic anemia Mild, stable H&H History of substance abuse On methadone for many years Continue methadone 130mg daily Obesity class III BMI 40.4 Discussed importance of weight management as this may be contributing to worsening of other comorbidities DVT prophylaxis with early ambulation Full code Pt requires continued hospitalization for aggressive IV fluid resuscitation and close monitoring of kidney function, CPK, and LFTs. Quality Stroke Does the patient have a stroke diagnosis?: No VTE Prior VTE?: No VTE Risk Level:: Medical - moderate - high VTE Device Contraindication: Treatment Not Indicated VTE Drug Contraindication: Treatment Not Indicated
[2025-03-15 15:36] VITALS: BP 129/70; RESP 19; TEMP 36.2; O2SAT 95
[2025-03-15] MEDS: Butalb/Acetamin/Caff 50/325/40 TABLET 1 TAB PO (15:37)
[2025-03-15 20:00] VITALS: BP 141/70; PULSE 72; RESP 16; TEMP 36.4; O2SAT 99
[2025-03-16] MEDS: Lactated Ringers 1,000 ML 150 ML IVCONT ×2 (00:19→08:29)
[2025-03-16 03:04] VITALS: BP 140/76; PULSE 73; RESP 18; TEMP 36.7; O2SAT 100
[2025-03-16 04:03] LABS: A. Phagocytphilium DNA,RT-PCR NOT DETECTED (NOT DETECTED); Babesia Microti DNA, RT-PCR NOT DETECTED (NOT DETECTED); Borrelia Miyamotoi,DNA RT-PCR NOT DETECTED (NOT DETECTED); E.Chaffeensis DNA RT-PCR NOT DETECTED (NOT DETECTED); Lyme(Borrelia ssp)DNA RT-PCR NOT DETECTED (NOT DETECTED)
[2025-03-16 06:59] LABS: Alanine Aminotransferase 197 U/L (0-40); Albumin Level 4.0 g/dL (3.5-5.0); Alkaline Phosphatase 70 U/L (39-117); Anion Gap 16 (12-20); Aspartate Amino Transferase 404 U/L (5-37); Blood Urea Nitrogen 6 mg/dL (9-16); Calcium 9.1 mg/dL (8.4-10.2); Carbon Dioxide 22 mmol/L (22-29); Chloride 109 mmol/L (96-108); Creatinine Clr Calc Pharmacy 223.9; Estimated Glomerular Filt Rate > 60; Potassium 4.9 mmol/L (3.3-5.1); Sodium 142 mmol/L (135-145); Total Protein 7.5 g/dL (6.5-8.0)
[2025-03-16 07:32] VITALS: BP 131/71; PULSE 79; RESP 16; TEMP 36.5; O2SAT 100
[2025-03-16] MEDS: methADONE HCl 20 MG/2 ML ORAL.CONC 130 MG PO (08:17)
[2025-03-16 15:33] VITALS: BP 142/81; PULSE 83; RESP 18; TEMP 36.5; O2SAT 97
--- NOTE | 2025-03-16 16:01 | MHC.CM.PN ---
Pt. has been medically cleared to [place], he will go home via private transport, plan is self care.
--- NOTE | 2025-03-16 16:23 | PM.DS ---
DS: Providers Provider Date of Service: 03/16/25 Date of admission: 03/13/25 16:41 Date of discharge: 03/16/25 Primary care physician: [facility] Consults: 03/13/25 16:38 Consult to Gastroenterology Routine Consulting Provider[place] [facility] Reason for consultation: abd pain, enlarged liver 03/13/25 17:12 Consult to Infectious Diseases Routine Consulting Provider: [facility] Reason for consultation: Severe rhabdomyolysis, question viral syndrome DS: Diagnosis Discharge Diagnosis (1) Rhabdomyolysis: Status: Acute DS: Summary Hospital Course Hospital Course: From admission HPI Date of Service: 03/13/25 Chief Complaint: Abdominal pain 34-year-old man presented to ER with complaints of upper arm pain and right upper quadrant abdominal pain. He reported that this started suddenly yesterday. He denied any recent illness, steroid use, drug use, alcohol use, trauma, vigorous exercise. 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 He reports that he only takes methadone and has been on it for many years. He reported that he had a seizure when he was very young secondary to a concussion but has never been on any medications and has never had any other seizure activity. Patient reported that he vapes. Does not have any significant medical history and does not take any other medications other than the methadone and medication for acid reflux. He did report that he was treated for strep infection last month with antibiotics and steroids. In the ER, his CPK was noted to be elevated at 42,670, CRP 1.53, LDH 1261, AST 620, ALT 221. Abdominal ultrasound showed mild enlargement of the liver. Patient was started on IV fluids. He will be admitted for further management and treatment of severe rhabdomyolysis. Hospital course Pt with the hospital for elevated LFTs and rhabdomyolysis possibly secondary to post viral syndrome. Pt reports that he was treated for strep throat antibiotics approximately 4-6 weeks prior to symptom onset. Pt does not remember whether or not he tested positive or was treated empirically. Pt also reported he began taking a new workout supplement for the 1st time the day prior to symptom onset; unclear if this was contributory or not as ingredient list looked relatively benign. Pt was seen and evaluated by both GI and Infectious Disease thought it might be infectious in nature, possibly secondary to CMV, adenovirus, or Coxsackie virus. Other workup was negative, including HIV, tick panel, and respiratory panel. Pt did test positive for Love-Espinoza virus, but ID thought this was chronic exposure and likely not contributory. Pt was treated with aggressive IV fluid hydration with improvement to his labs with CPK improving from >42,670 to 19,191 and AST/ALT from 620/221 to 404/197. Creatinine remained stable and at baseline throughout hospital stay. Pt overall appears clinically stable and with labs improving, he will be discharged home with recommendation for aggressive p.o. fluid intake and follow-up in 3-4 days with PCP for repeat labs and monitoring of LFTs, creatinine, and CPK. Patient's BP was noted to be elevated during hospital stay, though this was possibly due to aggressive IVF. Pt should follow up with PCP for additional monitoring and management. Pt knows to return to the emergency room if his urine becomes dark/Coca-Cola colored. It was recommended that he stop taking workout supplement. He should resume his other home medications. Time Attestation Discharge Coordination Time (in mins): 35 Quality: Safe Use of Opioids Does Pt have an Active Cancer Diagnosis on the Problem List?: No Quality: Stroke Does the patient have a stroke diagnosis?: No Physical Exam Exam: Exam: General: AOx3, no acute distress ENT: tonsils swollen without exudate. No cervical tonsillar lymphadenopathy. Resp: CTA bilaterally CVS: S1, S2, RRR GI: +BS, NT, no distention Skin: Warm, dry Neuro: Cranial nerves II-XII grossly intact bilaterally. Motor grossly intact bilaterally Extremities: No edema. Right upper extremities with mildly limited ROM secondary to soreness Psych: Appropriate affect Vital Signs: Vital Signs: Last Vital Signs Temp 97.7 F 03/16/25 15:33 Pulse 83 03/16/25 15:33 Resp 18 03/16/25 15:33 BP 142/81 H 03/16/25 15:33 Pulse Ox 97 03/16/25 15:33 O2 Del Method Room Air 03/16/25 15:33 BMI result Body Mass Index 40.3 DS: Data Data Completed and Pending Labs on day of discharge: Laboratory Results - last 24 hr 03/14/25 03/16/25 03/16/25 16:47 05:29 08:48 Sodium 142 Potassium 4.9 Chloride 109 H Carbon Dioxide 22 Anion Gap 16 BUN 6 L Creatinine 0.56 Estim Creat Clear Calc 223.9 Estimated GFR > 60 Random Glucose 109 Calcium 9.1 Total Bilirubin 0.3 AST 404 H ALT 197 H Alkaline Phosphatase 70 Total Creatine Kinase TNP 30902 H Total Protein 7.5 Albumin 4.0 A.phagocytophil DNA PCR NOT DETECTED Babesia microti DNA PCR NOT DETECTED Borrelia sp DNA (PCR) NOT DETECTED Borrelia miyamotoi (PCR) NOT DETECTED E.chaffeensis DNA (PCR) NOT DETECTED Tick-borne Disease PCR SEE NOTE Discharge Plan Discharge Anticipated Discharge Date/Time: 03/16/25 15:51 Patient Disposition: Home, Self-Care Discharge Diagnosis: Acute rhabdomyolysis Referrals: [facility] [Primary Care Provider, Primary Care] - 1 Week Discharge Medications: Continued omeprazole 20 mg Tablet,Delayed Release (Dr/Ec) 20 mg PO DAILY@0630 methadone [Methadone Intensol] 10 mg/mL Concentrate 130 mg PO DAILY Discharge Orders: Discharge Order (Routine); Ordered 03/16/25 Ordered By: Naty Rebolledo Activity on Discharge: As tolerated Stand Alone Forms: Patient Portal Discharge page Print Language: Hungarian Care Plan Goals: See below Health Concerns: Rhabdomyolysis Transaminitis Post vial syndrome Plan of Treatment: You were admitted to the hospital for elevated liver enzymes and rhabdomyolysis of unclear etiology, possibly secondary to post viral syndrome as you noted that you were treated for strep throat approximately 4-6 weeks ago. Other work up was largely negative including a negative tick panel, hepatitis panel, respiratory viral panel, and HIV. You did test positive for Love-Espinoza virus, but this is likely not an acute infection and infectious disease does not think this is the cause of your symptoms. You also noted that you took a workout supplement for the first time the day prior to symptom onset; it is unclear if this was contributory but it is suggested you stop taking this just in case. You were treated with aggressive IV fluids with continual improvement in your creatinine kinase and liver enzyme levels. Your levels are not back to normal, but as they have been trending down you should be able to be discharged with follow up next week for repeat labs. -- you were encouraged to increase your fluid intake over the next 4-5 days -- follow up with [facility] on Monday 03/19 or Tuesday 03/20 for repeat labs monitoring kidney and liver function: you should have your creatinine, total creatinine kinase, AST, ALT, and alk-phos monitored. -- CPK initially >42,670, currently 21214 -- AST/ALT initially 620/221, currently 404/197 -- creatinine has remained within normal limits at 0.56 -- please return immediately to the ED if your urine is tea or Coca-Cola colored -- you BP was noted to be elevated during your stay, though this may be due to the IV fluids you were receiving. Monitor BP and follow up with PCP for management. -- continue all of your other home meds Assessment: See discharge johanne
[2025-03-16 16:24] LABS: Cholesterol 202 mg/dL (<200); HDL Cholesterol 45 mg/dL (>40); Triglycerides 122 mg/dL (<150)
[2025-03-20 10:34] LABS: Leptospira DNA Source WHOLE BLOOD; Leptospira DNA, Qual RT-PCR NOT DETECTED
== END 2025-03-16 16:55 | disposition home or self-care (01) | DRG 351 ==
LOC: HO.ED 15:54 → HO.EDOVER 16:45 → HO.S3 16:50
PROVIDERS: Internal Medicine; Physician Assistant Medical; Admitting Provider Nurse Practitioner Acute Care; Emergency Provider Emergency Medicine Emergency Medical Services; PCP Dentist General Practice; Visit Provider Student in an Organized Health Care Education/Training Program
DX: M62.82 Rhabdomyolysis (principal); K76.0 Fatty (change of) liver, not elsewhere classified; D64.9 Anemia, unspecified; M60.9 Myositis, unspecified; E66.813 Obesity, class 3; F11.20 Opioid dependence, uncomplicated; Z68.41 Body mass index [BMI] 40.0-44.9, adult; Z71.3 Dietary counseling and surveillance; Z20.822 Contact with and (suspected) exposure to COVID-19; Z79.899 Other long term (current) drug therapy
CPT/HCPCS: 36415; 71045; 74177; 76705; 80048; 80053; 80061; 80076; 80307; 81001; 82550; 82728; 83036; 83615; 83735; 84443; 85025; 85027; 85652; 86140; 86664; 86665; 86704; 86706; 86709; 86803; 87340; 87389; 87468; 87469; 87478; 87484; 87633; 87798; 93005; 99285; J1171; J1885; J7120

== ENCOUNTER → 2025-03-13 13:55 | Outpatient (BNV) | payer MEDICAID, SELFPAY | PROVIDERS: Emergency Provider Emergency Medicine Emergency Medical Services; PCP Dentist General Practice; Visit Provider Radiology Diagnostic Radiology | DX: R10.11 Right upper quadrant pain (principal); R10.31 Right lower quadrant pain; R74.01 Elevation of levels of liver transaminase levels; R16.0 Hepatomegaly, not elsewhere classified; K76.0 Fatty (change of) liver, not elsewhere classified; M62.82 Rhabdomyolysis | CPT/HCPCS: 71045; 74177; 76705 ==

== ENCOUNTER 2025-03-13 16:41 | Outpatient (BNV) | payer MEDICAID, SELFPAY | END 2025-03-13 17:51 | PROVIDERS: Admitting Provider Nurse Practitioner Acute Care; Emergency Provider Emergency Medicine Emergency Medical Services; PCP Dentist General Practice; Visit Provider Internal Medicine | DX: Z13.6 Encounter for screening for cardiovascular disorders (principal) | CPT/HCPCS: 93010 ==

== ENCOUNTER → 2025-03-13 16:41 | Outpatient (BNV) | payer MEDICAID, SELFPAY | PROVIDERS: Admitting Provider Nurse Practitioner Acute Care; Emergency Provider Emergency Medicine Emergency Medical Services; PCP Dentist General Practice; Visit Provider Internal Medicine | DX: M62.82 Rhabdomyolysis (principal); F11.20 Opioid dependence, uncomplicated | CPT/HCPCS: 99222 ==

== ENCOUNTER → 2025-03-13 16:41 | Outpatient (BNV) | payer MEDICAID, SELFPAY | PROVIDERS: Admitting Provider Nurse Practitioner Acute Care; Emergency Provider Emergency Medicine Emergency Medical Services; PCP Dentist General Practice; Visit Provider Nurse Practitioner Acute Care | DX: M62.82 Rhabdomyolysis (principal) | CPT/HCPCS: 99223; 99233 ==

== ENCOUNTER → 2025-03-13 16:41 | Outpatient (BNV) | payer MEDICAID, SELFPAY | PROVIDERS: Admitting Provider Nurse Practitioner Acute Care; Emergency Provider Emergency Medicine Emergency Medical Services; PCP Dentist General Practice; Visit Provider Internal Medicine Gastroenterology | DX: M62.82 Rhabdomyolysis (principal) | CPT/HCPCS: 99223 ==

== ENCOUNTER 2025-03-20 11:17 | Outpatient (REF) | payer MEDICAID, SELFPAY ==
[2025-03-20 12:35] LABS: Alanine Aminotransferase 112 U/L (0-40); Albumin Level 4.5 g/dL (3.5-5.0); Alkaline Phosphatase 75 U/L (39-117); Anion Gap 13 (12-20); Aspartate Amino Transferase 71 U/L (5-37); Blood Urea Nitrogen 12 mg/dL (9-16); Calcium 9.5 mg/dL (8.4-10.2); Carbon Dioxide 30 mmol/L (22-29); Chloride 102 mmol/L (96-108); Estimated Glomerular Filt Rate > 60; Potassium 4.6 mmol/L (3.3-5.1); Sodium 140 mmol/L (135-145); Total Protein 7.8 g/dL (6.5-8.0)
--- OUTSIDE RECORDS SUMMARY | 2025-03-20 15:02 | XMS_ITS | Clinical Summary ---
Author Organization [employer] Address [address] [place] [address] Care Team Providers Care Audit Intern Name Role Phone Unavailable Primary Care Provider [...]
== END 2025-03-20 11:18 | disposition home or self-care (01) ==
LOC: HO.LAB 11:17
PROVIDERS: Visit Provider Nurse Practitioner Acute Care
DX: M62.82 Rhabdomyolysis (principal); B27.90 Infectious mononucleosis, unspecified without complication
CPT/HCPCS: 36415; 80048; 80076; 82550